=== PATIENT | male | born 1995 | race Caucasian/White ===

== ENCOUNTER 2018-12-16 15:50 | Emergency (ER) | payer SELFPAY ==
[2018-12-16] MEDS: KETOROLAC 30 MG INJ IM (17:10)
== END 2018-12-16 19:10 | disposition home or self-care (01) ==
LOC: FTE 19:10
DX: M79.604 Pain in right leg (principal); F17.210 Nicotine dependence, cigarettes, uncomplicated
CPT/HCPCS: 96372; 99284-25; J1885